=== PATIENT | male | born 1970 | race Caucasian/White ===

== ENCOUNTER → 2018-05-17 | Outpatient (CLI) | payer MEDICARE ==
[2018-05-17 10:05] LABS: Basophils # (A) 0.1 k/uL (0-0.2); Basophils % (A) 1 %; Eosinophils # (A) 0.2 k/uL (0-0.7); Eosinophils % (A) 2 %; HCT 47.3 % (39.0-53.0); HGB 15.3 gm/dL (13.0-17.5); Lymphocytes # (A) 3.3 k/uL (1.0-4.8); Lymphocytes % (A) 31 %; MCH 27.3 pg (25.0-35.0); MCHC 32.4 g/dL (31.0-37.0); MCV 84.3 fL (80.0-100.0); Mean Platelet Volume 7.6; Monocytes # (A) 0.5 k/uL (0-1.0); Monocytes % (A) 5 %; Neutrophils # (A) 6.3 k/uL (1.3-7.7); Neutrophils % (A) 60 %; Platelet Count 250 k/uL (150-450); RBC 5.61 m/uL (4.30-5.90); RDW 14.6 % (11.5-15.5); WBC 10.6 k/uL (3.8-10.6)
[2018-05-17 16:15] LABS: Albumin 4.7 g/dL (3.80-4.90); Albumin/Globulin Ratio 2.14 (1.20-2.10); Anion Gap 8.1 mmol/L (4.00-12.00); Calcium 10.1 mg/dL (8.7-10.3); Carbon Dioxide 30.9 mmol/L (21.6-31.8); Globulin 2.2 g/dL (2.1-3.7); Potassium 4.4 mmol/L (3.5-5.5); Total Bilirubin 0.7 mg/dL (0.3-1.2); Total Protein 6.9 g/dL (6.2-8.2)
== END ==
LOC: LABWHC1 09:08
PROVIDERS: ATTEND Psychiatry & Neurology Neurology
DX: G35 Multiple sclerosis (principal)
CPT/HCPCS: 36415; 80053; 82306; 85025

== ENCOUNTER → 2018-09-09 | Outpatient (CLI) | payer MEDICARE ==
--- NOTE | 2018-09-09 15:09 | US ---
EXAMINATION TYPE: US kidneys/renal and bladder DATE OF EXAM: 09/09/2018 COMPARISON: NONE CLINICAL HISTORY: R31.9 Hematuria; N20.0 History of kidney stone. Hematuria per order. Hx kidney sto [place]. EXAM MEASUREMENTS: Right Kidney: 15.3 x 7.5 x 7.5 cm Left Kidney: 13.0 x 6.8 x 5.8 cm Post Void Residual Volume: Not performed Right Kidney: No hydronephrosis or masses seen. No stones seen. Left Kidney: No hydronephrosis or masses seen. No stones seen. Bladder: Limited visibility. Not fully distended. Bilateral Jets seen: No There is no ascites. Cortical medullary differentiation is maintained. IMPRESSION: Renal sizes as described. No hydronephrosis.
== END | disposition home or self-care (01) ==
LOC: RADUSWWP 14:06
PROVIDERS: ATTEND Family Medicine
DX: N20.0 Calculus of kidney (principal); N28.9 Disorder of kidney and ureter, unspecified; R31.29 Other microscopic hematuria
CPT/HCPCS: 76770; 87086

== ENCOUNTER → 2024-01-17 | Outpatient (CLI) | payer MEDICARE | END | disposition home or self-care (01) | LOC: LABPRL 09:15 | PROVIDERS: ATTEND Family Medicine | DX: I10 Essential (primary) hypertension (principal); E11.40 Type 2 diabetes mellitus with diabetic neuropathy, unspecified | CPT/HCPCS: 80053; 80061; 83036; 84443; 85025 ==